=== PATIENT | female | born 2000 | race Caucasian/White ===

== ENCOUNTER 2020-03-31 16:00 | Observation (INO) | payer MEDICAID ==
[2020-03-31] MEDS ORDERED: Flumazenil 0.1 MG/ML 5 ML MDV IVPUSH PRN (16:19)
[2020-03-31] MEDS ORDERED: LORazepam 2 MG/ML SDV IVPUSH ONE (16:19)
[2020-03-31] MEDS ORDERED: Sodium Chloride 0.9% 1,000 ML IV SCH (16:30)
[2020-03-31 17:07] LABS: CHLORIDE,CL 103 mmol/L (98-107); SODIUM,NA 138 mmol/L (136-145)
[2020-03-31 17:08] LABS: ANION GAP 18.7 mmol/L (10-20)
[2020-03-31] MEDS ORDERED: Sodium Chloride 0.9% with KCl 1,000 ML IV SCH (18:00)
--- NOTE | 2020-03-31 18:05 | EDM.PDOC ---
ED HPI GENERAL MEDICAL PROBLEM - General Chief Complaint: Behavioral/Psych Time Seen by Provider: 03/31/20 17:29 Source of Information: Reports: Patient History Limitations: Reports: No Limitations - History of Present Illness INITIAL COMMENTS - FREE TEXT/NARRATIVE: Pt. presents to ER via Mother. Mom states that the patient relapsed and has started using methamphetamine after being clear for 100 days. Mom states that the patient has been "everywhere" for chemical dependency treatment, including [facility], [facility] and [facility]. Mom states that the patient lives in [place], but asked her Mom to take her to her house as she didn't feel safe. Mom states that the patient has been difficult at home, refusing to go back to treatment. Mom states she was enraged yesterday, and was threatening toward her mother and was throwing objects. Pt. denies any suicidal or homicidal ideation. Mom states that she became very anxious and agitated earlier today, she thinks after doing more meth. Pt. is unable to recall the last time she used. Mom was able to get the patient in the car and brought her to ER. Once at ER, she was refusing to get out of the car and was crying and screaming. It took nursing several minutes to persuade the patient to get out of the car to be evaluated. Pt. only complaint was of chest pain earlier in the day. Denies any shortness of breath. No lightheadedness. Denies palpitations, jaw, arm, neck or back pain. Onset: Today Onset Date: 03/31/20 Location: Reports: Generalized - Related Data Allergies Allergy/AdvReac Type Severity Reaction Status Date / Time Penicillins Allergy Other Verified 03/31/20 16:17 sertraline [From Zoloft] Allergy Other Verified 03/31/20 16:17 Social & Family History - Tobacco Use Smoking Status *Q: Current Every Day Smoker Years of Tobacco use: 2 Packs/Tins Daily: 1 Used Tobacco, but Quit: No Second Hand Smoke Exposure: No - Caffeine Use Caffeine Use: Reports: Coffee, Soda - Alcohol Use Days Per Week of Alcohol Use: 1 Number of Drinks Per Day: 1 Total Drinks Per Week: 1 - Recreational Drug Use Recreational Drug Use: Yes Drug Use in Last 12 Months: Yes Recreational Drug Type: Reports: Marijuana/Hashish, Methamphetamine, Xanax Recreational Drug Use Frequency: Monthly ED ROS GENERAL - Review of Systems Review Of Systems: See Below Constitutional: Reports: No Symptoms HEENT: Reports: No Symptoms Respiratory: Reports: No Symptoms Cardiovascular: Reports: Chest Pain Endocrine: Reports: No Symptoms GI/Abdominal: Reports: No Symptoms : Reports: No Symptoms Musculoskeletal: Reports: No Symptoms Skin: Reports: No Symptoms Neurological: Reports: No Symptoms Psychiatric: Reports: Agitation, Anxiety. Denies: Hallucinations, Homicidal Ideation Hematologic/Lymphatic: Reports: No Symptoms Immunologic: Reports: No Symptoms ED EXAM, GENERAL - Physical Exam Exam: See Below Exam Limited By: No Limitations General Appearance: Alert, WD/WN, No Apparent Distress Eye Exam: Bilateral Eye: EOMI, PERRL Throat/Mouth: Normal Inspection, Normal Lips, Normal Teeth, Normal Oropharynx, Normal Voice, No Airway Compromise Head: Atraumatic, Normocephalic Respiratory/Chest: No Respiratory Distress, Lungs Clear, Normal Breath Sounds, No Accessory Muscle Use, Chest Non-Tender Cardiovascular: Normal Peripheral Pulses, Regular Rate, Rhythm, No Edema, No Rub Peripheral Pulses: 4+: Radial (R) GI/Abdominal: Soft, Non-Tender, No Mass (Female) Exam: Deferred Rectal (Female) Exam: Deferred Back Exam: Normal Inspection, Full Range of Motion Extremities: Normal Inspection, Normal Range of Motion, Non-Tender, No Pedal Edema, Normal Capillary Refill Neurological: Alert, Oriented, CN II-XII Intact, Normal Cognition, Normal Gait, Normal Reflexes, No Motor/Sensory Deficits Psychiatric: Anxious, Tearful, Other (belligerent) Skin Exam: Warm, Dry, Intact, Normal Color, No Rash Lymphatic: No Adenopathy Course - Vital Signs Last Recorded V/S: Last Vital Signs Temp 36.8 C 03/31/20 17:48 Pulse 118 H 03/31/20 17:48 Resp 23 H 03/31/20 17:48 BP 151/114 H 03/31/20 17:48 Pulse Ox 100 03/31/20 17:48 - Orders/Labs/Meds Orders: Active Orders 24 hr Category Date Time Status EKG Documentation Completion [RC] STAT Care 03/31/20 16:18 Active DRUG SCREEN, URINE [URCHEM] Stat Lab 03/31/20 16:19 Ordered UA RFX BRUNO AND CULT IF INDIC [URIN] Stat Lab 03/31/20 16:18 Ordered Sodium Chloride 0.9% [Normal Saline] 1,000 ml Med 03/31/20 16:30 Active IV ASDIRECTED Sodium Chloride 0.9% [Saline Flush] Med 03/31/20 16:18 Active 10 ml FLUSH ASDIRECTED PRN flumazeniL [Romazicon] Med 03/31/20 16:19 Active 0.2 mg IVPUSH ASDIRECTED PRN Peripheral IV Insertion Adult [OM.PC] Routine Oth 03/31/20 16:18 Ordered Medication Orders Flumazenil (Romazicon) 0.2 mg IVPUSH ASDIRECTED PRN PRN Reason: Respiratory Depression Sodium Chloride (Normal Saline) 1,000 mls @ 150 mls/hr IV ASDIRECTED BRIEN Last Admin: 03/31/20 16:24 Dose: 150 mls/hr Documented by: PATRICK Potassium Chloride/Sodium Chloride (Normal Saline With 40 Meq Kcl) 1,000 mls @ 250 mls/hr IV ASDIRECTED BRIEN Lorazepam (Ativan) 0.5 mg PO QID BRIEN Sodium Chloride (Saline Flush) 10 ml FLUSH ASDIRECTED PRN PRN Reason: Keep Vein Open Labs: Laboratory Tests 03/31/20 03/31/20 Range/Units 16:30 16:30 WBC 12.5 H (4.0-10.0) x10^3/uL RBC 4.76 (4.00-5.50) x10^6/uL Hgb 13.9 (12.0-16.0) g/dL Hct 39.0 (33.0-47.0) % MCV 81.9 (78.0-93.0) fL MCH 29.2 (26.0-32.0) pg MCHC 35.6 (32.0-36.0) g/dL RDW Coeff of Jhon 12.4 (10.0-15.0) % Plt Count 340 (130-400) x10^3/uL Neut % (Auto) 77.5 (50.0-80.0) % Lymph % (Auto) 14.8 L (25.0-50.0) % Liberty % (Auto) 7.3 (2.0-11.0) % Eos % (Auto) 0.2 (0.0-4.0) % Baso % (Auto) 0.2 (0.2-1.2) % Sodium 138 (136-145) mmol/L Potassium 2.7 L* (3.5-5.1) mmol/L Chloride 103 (98-107) mmol/L Carbon Dioxide 19 L (21-32) mmol/L Anion Gap 18.7 (10-20) mmol/L BUN 14 (7-18) mg/dL Creatinine 1.0 (0.55-1.02) mg/dL Est Cr Clr Drug Dosing TNP Estimated GFR (MDRD) > 60 Glucose 162 H (74-106) mg/dL Calcium 9.3 (8.5-10.1) mg/dL Corrected Calcium 8.98 (8.5-10.1) mg/dL Magnesium 1.8 (1.8-2.4) mg/dL Total Bilirubin 0.6 (0.2-1.0) mg/dL AST 12 L (15-37) U/L ALT 19 (14-59) U/L Alkaline Phosphatase 73 (46-116) U/L Troponin I < 0.017 (<=0.056) ng/mL Total Protein 7.6 (6.4-8.2) g/dL Albumin 4.4 (3.4-5.0) g/dL Globulin 3.2 Albumin/Globulin Ratio 1.38 TSH, Ultra Sensitive 0.696 (0.516-4.13) uIU/mL Ethyl Alcohol < 3 (0-3) mg/dL Meds: Medications Generic Name Dose Route Start Last Admin Trade Name Freq PRN Reason Stop Dose Admin Flumazenil 0.2 mg 03/31/20 16:19 Romazicon IVPUSH ASDIRECTED PRN Respiratory Depression Sodium Chloride 1,000 mls @ 150 mls/hr 03/31/20 16:30 03/31/20 16:24 Normal Saline IV 150 mls/hr ASDIRECTED BRIEN Administration Potassium Chloride/Sodium Chloride 1,000 mls @ 250 mls/hr 03/31/20 18:00 Normal Saline With 40 Meq Kcl IV ASDIRECTED BRIEN Lorazepam 0.5 mg 03/31/20 20:00 Ativan PO QID BRIEN Sodium Chloride 10 ml 03/31/20 16:18 Saline Flush FLUSH ASDIRECTED PRN Keep Vein Open Discontinued Medications Generic Name Dose Route Start Last Admin Trade Name Lolita PRN Reason Stop Dose Admin Lorazepam 1 mg 03/31/20 16:19 03/31/20 16:23 Ativan IVPUSH 03/31/20 16:20 1 mg STAT ONE Administration Departure - Departure Time of Disposition: 18:12 Disposition: Refer to Observation Clinical Impression: Methamphetamine abuse - Discharge Information - Problem List Review Problem List Initiated/Reviewed/Updated: Yes - My Orders Last 24 Hours: My Active Orders 03/31/20 16:18 EKG Documentation Completion [RC] STAT UA RFX BRUNO AND CULT IF INDIC [URIN] Stat Sodium Chloride 0.9% [Saline Flush] 10 ml FLUSH ASDIRECTED PRN Peripheral IV Insertion Adult [OM.PC] Routine 03/31/20 16:19 DRUG SCREEN, URINE [URCHEM] Stat flumazeniL [Romazicon] 0.2 mg IVPUSH ASDIRECTED PRN 03/31/20 16:30 Sodium Chloride 0.9% [Normal Saline] 1,000 ml IV ASDIRECTED - Assessment/Plan Last 24 Hours: My Active Orders 03/31/20 16:18 EKG Documentation Completion [RC] STAT UA RFX BRUNO AND CULT IF INDIC [URIN] Stat Sodium Chloride 0.9% [Saline Flush] 10 ml FLUSH ASDIRECTED PRN Peripheral IV Insertion Adult [OM.PC] Routine 03/31/20 16:19 DRUG SCREEN, URINE [URCHEM] Stat flumazeniL [Romazicon] 0.2 mg IVPUSH ASDIRECTED PRN 03/31/20 16:30 Sodium Chloride 0.9% [Normal Saline] 1,000 ml IV ASDIRECTED Plan: Pt. will be admitted observation due to hypokalemia and methamphetamine induced agitation. Pt. was started on NS with 40meq KCL at 250ml/hr. will treat agitation with oral ativan. Pt. unwilling to discuss any interest in starting treatment again. Will reevaluate when she is less agitated. Pt. is a code 1.
[2020-03-31] MEDS ORDERED: Nicotine 14 MG/24 Hr Patch TRDERM ONE (19:00)
[2020-03-31] MEDS: LORazepam 0.5 MG Tab PO SCH (19:38)
[2020-03-31] MEDS: Sodium Chloride 0.9% 10 ML Syringe FLUSH PRN (19:38)
[2020-03-31] MEDS: NS + KCl 20mEq/L 1,000 ML IV SCH (23:45)
[2020-04-01 06:54] LABS: ANION GAP 12.1 mmol/L (10-20); CHLORIDE,CL 109 mmol/L (98-107); SODIUM,NA 140 mmol/L (136-145)
[2020-04-01] MEDS: NS + KCl 20mEq/L 1,000 ML IV SCH (07:50)
[2020-04-01 09:54] LABS: BARBITURATE SCREEN,URINE NEGATIVE (NEGATIVE); BENZODIAZEPINES SCREEN,URINE NEGATIVE (NEGATIVE); EDDP,URINE SCREEN NEGATIVE (NEGATIVE); METHAMPHETAMINE SCREEN, URINE POSITIVE (NEGATIVE); TCA SCREEN,URINE NEGATIVE (NEGATIVE); THC SCREEN,URINE 50 NG/ML NEGATIVE (NEGATIVE)
[2020-04-01] MEDS: LORazepam 0.5 MG Tab PO SCH ×2 (09:59→12:35)
[2020-04-01] MEDS ORDERED: cefTRIAXone 1 GM Vial IVPUSH SCH (10:30)
[2020-04-01] MEDS: Sodium Chloride 0.9% 10 ML Syringe FLUSH PRN (12:35)
== END 2020-04-01 13:00 | disposition home or self-care (01) ==
LOC: VM.ED 16:00 → EEVIPCON 17:29 → VM.MS 17:29
PROVIDERS: ADMIT Physician Assistant; ATTEND Physician Assistant
DX: F15.10 Other stimulant abuse, uncomplicated (principal); E87.6 Hypokalemia; R45.1 Restlessness and agitation; F17.210 Nicotine dependence, cigarettes, uncomplicated; Z88.0 Allergy status to penicillin; Z88.8 Allergy status to other drugs, medicaments and biological substances
CPT/HCPCS: 36415; 80048; 80053; 80305-QW; 80307; 81001; 83735; 84443; 84484; 85025; 87086; 87088; 93005; 96361; 96365; 96366; 96374; 96375; 99285-25; A9270-GY; G0378; J0696; J2060; J3480; J7030